=== PATIENT | female | born 1965 | race African-American/Black ===

== ENCOUNTER 2018-03-29 18:22 | Emergency (ER) | payer SELFPAY ==
[~2018-03-29] VITALS: Ht 165.1 cm; Wt 77.0 kg
[~2018-03-29 18:22] MED LIST: LISI-604; METH5TAB68; SERT50TA12
[2018-03-29] MEDS ORDERED: ENALAPRIL 2.5MG/2ML VIAL 2ML IV ONE (21:00)
[2018-03-29 22:11] LABS: BASOPHILS % 0.9 % (0.0-2.0); EOSINOPHILS % 0.9 % (0.0-5.0); HEMATOCRIT. 44.1 % (36.0-48.0); HEMOGLOBIN. 14.4 g/dL (12.0-16.0); MEAN CORPUSCULAR HEMOGLOBIN 31.2 pg (28.0-32.0); MEAN CORPUSCULAR VOLUME 95.2 fL (81.0-99.0); MEAN PLATELET VOLUME 10.6 fl (7.4-10.4); MONOCYTES % 7.1 % (2.0-8.0); NEUTROPHILS % 67.1 % (40.0-76.0); PLATELET 137 x1000/uL (130-400); RED BLOOD CELL COUNT 4.63 mill/uL (4.2-5.4); RED CELL DISTRIBUTION WIDTH 14.4 % (11.6-14.6)
[2018-03-29 22:18] LABS: CHLORIDE 107 mEq/L (98-107)
[2018-03-29 23:30] VITALS: BP 145/87
== END 2018-03-29 23:29 | disposition home or self-care (01) ==
LOC: ER 18:22
DX: I10 Essential (primary) hypertension (principal); R42 Dizziness and giddiness; Z88.0 Allergy status to penicillin; Z88.5 Allergy status to narcotic agent
CPT/HCPCS: 36415; 70450; 80048; 85025; 93005; 96374; 99284; J3490